=== PATIENT | male | born 1935 | race Two or more races ===

== ENCOUNTER 2016-12-15 13:11 | Emergency (ER) | payer MEDICARE, OTHER ==
[~2016-12-15] VITALS: Ht 167.6 cm; Wt 86.2 kg
[2016-12-15 13:32] VITALS: BP 167/78
--- NOTE | 2016-12-15 13:49 | Emergency Room Report ---
History of Present Illness General Chief Complaint: General Complaint Source: Patient, Family Member Present Illness HPI Patient brought in by daughter complaining of left foot pain for one week. States that left ball the foot is red, swollen and tender to touch. Patient has a history of diabetes and gout diagnosed (gout diagnosed 2 years ago) and regularly takes medication for his gout flareups. States that he is taking Meloxicam 7.5 for his gout flair up but normally takes colecris and daughter does not want to give him anything stronger do to poor renal function. Patient also uncontrolled diabetic with fasting blood sugars in the 150s. Daughter is skeptical that this is gout (thinks its cellulitis) and is requesting workup including MRI and uric acid. States that he had negative x-ray of foot yesterday. Allergies: Coded Allergies: No Known Allergies (Unverified , 12/15/16) Patient History Limited by: language barrier Past Medical History: see triage record Pertinent Family History: none Immunizations: UTD Reviewed Nursing Documentation: PMH: Agreed, PSxH: Agreed Nursing Documentation-PMH Hx Cardiac Problems: No Hx Hypertension: Yes Hx Pacemaker: No Hx Asthma: No Hx COPD: No Hx Diabetes: No Hx Cancer: No Hx Gastrointestinal Problems: No Hx Dialysis: No History Of Psychiatric Problem: No Hx Neurological Problems: Yes - PVD,GOUT Hx Cerebrovascular Accident: No Hx Seizures: No Review of Systems All Other Systems: negative except mentioned in HPI Physical Exam Vital Signs Date Time Temp Pulse Resp B/P Pulse Ox O2 Delivery O2 Flow Rate FiO2 12/15/16 13:27 98.1 78 16 167/78 98 Room Air Sp02 EP Interpretation: reviewed, normal - stable General Appearance: no apparent distress, alert, GCS 15, non-toxic Head: normocephalic, atraumatic Respiratory: chest non-tender, lungs clear, normal breath sounds, speaking full sentences Cardiovascular #1: regular rate, rhythm, no edema Musculoskeletal: back normal, gait/station normal, normal range of motion, non- tender, calf tenderness Neurologic: alert, oriented x3, responsive, motor strength/tone normal, sensory intact, speech normal Psychiatric: judgement/insight normal, memory normal, mood/affect normal, no suicidal/homicidal ideation Skin: normal color, warm/dry, well hydrated, other - area of erythema and swelling without excess heat, induration, discharge, or tenderness Lymphatic: no adenopathy Medical Decision Making PA Attestation Dr. Locke is my supervising physician with whom patient management has been discussed with. Diagnostic Impression: Primary Impression: Gout attack Qualified Codes: M10.9 - Gout, unspecified ER Course Pt. presents to the ED c/o left foot pain Ddx considered but are not limited to gout, cellulitis, arthritis, bone spur, trauma, fracture Vital signs: are WNL, pt. is afebrile H&PE are most consistent with gout attack ORDERS: CBC, BMP, Uric Acid, ESR, CRP, XR Left Foot ED INTERVENTIONS: none required at this time. DISCHARGE: At this time pt. is stable for d/c to home. Will provide printed patient care instructions, and any necessary prescriptions. Care plan and follow up instructions have been discussed with the patient prior to discharge. Laboratory Tests Test 12/15/16 13:40 Erythrocyte Sedimentation Rate 10 MM/HR (0-30) Sodium Level 136 mEQ/L (135-145) Potassium Level 4.9 mEQ/L (3.4-4.9) Chloride Level 94 mEQ/L (98-107) L Carbon Dioxide Level 28 mEQ/L (20-30) Anion Gap 14 (5-15) Blood Urea Nitrogen 24 mg/dL (7-23) H Creatinine 1.8 mg/dL (0.7-1.2) H Estimate Glomerular Filtration Rate mL/min (>60) Glucose Level 263 mg/dL (74-106) H Uric Acid 6.6 mg/dL (3.0-7.5) Calcium Level 9.8 mg/dL (8.6-10.2) Total Bilirubin 0.2 mg/dL (0.0-1.2) Aspartate Amino Transferase (AST) 17 U/L (5-40) Alanine Aminotransferase (ALT) 20 U/L (3-41) Alkaline Phosphatase 62 U/L (40-129) C-Reactive Protein, Quantitative 1.0 mg/dL (< 0.5) H Total Protein 7.7 g/dL (6.6-8.7) Albumin 4.3 g/dL (3.5-5.2) Globulin 3.4 g/dL Albumin/Globulin Ratio 1.2 (1.0-2.7) Other X-Ray Diagnostic Results Other X-Ray Diagnostic Results : X-Ray Ordered: XR Left Foot Date: Dec 15, 2016 EP Interpretation: Yes Findings: no fractures, no dislocation, no soft tissue swelling Number of Views: 3 Other Impression Negative Left foot Last Vital Signs Date Time Temp Pulse Resp B/P Pulse Ox O2 Delivery O2 Flow Rate FiO2 12/15/16 13:32 98.1 16 167/78 98 Room Air 12/15/16 13:27 78 Status: improved Disposition: HOME, SELF-CARE Condition: Stable Scripts Acetaminophen With Codeine (T#3) (TYLENOL #3 TAB*) Y Tab 1 TAB ORAL Q6HR Y for For Pain for 3 Days, #12 TAB Prov: SAYRA SHELLEEM P.A. 12/15/16 Colchicine (Colchicine) 0.6 Mg Capsule 0.6 MG PO BID for 3 Days, #9 CAP Prov: TAMMIERY,TAMEEM P.A. 12/15/16 TAMMIERY,TAMEEM P.A. Dec 15, 2016 13:49
[2016-12-15 14:14] LABS: ALANINE AMINOTRANSFERASE 20 U/L (3-41); ALBUMIN/GLOBULIN RATIO 1.2 (1.0-2.7); ANION GAP 14 (5-15); ASPARTATE AMINO TRANSFERASE 17 U/L (5-40); CALCIUM 9.8 mg/dL (8.6-10.2); CARBON DIOXIDE 28 mEQ/L (20-30); CHLORIDE 94 mEQ/L (98-107); CREATININE 1.8 mg/dL (0.7-1.2); HEMOLYSIS 8; POTASSIUM 4.9 mEQ/L (3.4-4.9); SODIUM 136 mEQ/L (135-145); TOTAL PROTEIN 7.7 g/dL (6.6-8.7)
[2016-12-15 14:15] LABS: URIC ACID 6.6 mg/dL (3.0-7.5)
[2016-12-15 15:18] VITALS: BP 155/73
[2016-12-15] MEDS ORDERED: COLCHICINE0.6 M1 PO ×2 (15:30→15:31)
[2016-12-15] MEDS ORDERED: ACETAMINOPHEN-1 EAC1 ORAL ×2 (15:30→15:32)
--- NOTE | 2017-01-18 12:03 | Diagnostic Imaging Report ---
Indication: Pain Comparison: None Findings: 3 views of the left foot were obtained. No acute fractures, malalignment, erosions or periostitis are identified. Hypertrophied and bifid lateral sesamoid noted. Some minimal marginal spurs are demonstrated involving some of the joints in the forefoot and midfoot. Bone mineralization is within normal limits. Soft tissues are unremarkable. Impression: No acute findings
== END 2016-12-15 15:44 | disposition home or self-care (01) ==
LOC: EMR 14:09 → CANBEDREQ 14:13 → EMR 15:44
DX: M10.9 Gout, unspecified (principal); I73.9 Peripheral vascular disease, unspecified; I10 Essential (primary) hypertension; E11.9 Type 2 diabetes mellitus without complications
CPT/HCPCS: 36415; 80053; 84550; 85651; 86140; 99284